=== PATIENT | female | born 1950 | race Caucasian/White ===

== ENCOUNTER 2016-10-03 18:55 | Emergency (ER) | payer MEDICARE, BC ==
[2016-10-03 19:07] VITALS: BP 165/83
[2016-10-03] MEDS ORDERED: Lidocaine/Epineph/Tetraca SOL* (LET solution) 4 ML BTL TOPICAL ONE (19:17)
--- NOTE | 2016-10-03 19:23 | UC ---
Head Injury HPI - HPI Summary HPI Summary: Slipped and fell back and hit her head--no loc laceration to back of scalp - History Of Current Complaint Chief Complaint: UCLaceration Stated Complaint: LACERATION BACK OF HEAD Time Seen by Provider: 10/03/16 19:10 Hx Obtained From: Patient ?: No Mechanism Of Injury: slipped and fell Onset/Duration: Sudden Onset, Still Present Severity Currently: Mild Severity Initially: Mild Pain Intensity: 4 Aggravating Factor(s): Nothing Alleviating Factor(s): Nothing Associated Signs And Symptoms: Positive: Negative - Allergies/Home Medications Allergies/Adverse Reactions: Allergies Allergy/AdvReac Type Severity Reaction Status Date / Time Bee Venom Allergy Swelling Verified 10/03/16 19:07 Home Medications: Home Medications Bp Med Unknown 1 tab PO DAILY 10/03/16 [History Confirmed 10/03/16] PMH/Surg Hx/FS Hx/Imm Hx Previously Healthy: No Cardiovascular History Of: Reports: Hypertension - Surgical History Surgical History: Yes Surgery Procedure, Year, and Place: c section - Family History Known Family History: Positive: None Family History: no reported cardio vascular issues in family lineage - Social History Occupation: Retired Lives: With Family Alcohol Use: Daily Alcohol Amount: wine daily Substance Use Type: None Smoking Status (MU): Never Smoked Tobacco - Immunization History Hx Tetanus, Diphtheria Vaccination: Yes - less than 2 years ago Vaccination Up to Date: Yes Review of Systems Constitutional: Negative Skin: Other - 2 inch laceration to back of head Eyes: Negative ENT: Negative Respiratory: Negative Cardiovascular: Negative Gastrointestinal: Negative Genitourinary: Negative Motor: Negative Neurovascular: Negative Musculoskeletal: Negative Neurological: Negative Psychological: Negative All Other Systems Reviewed And Are Negative: Yes Physical Exam Triage Information Reviewed: Yes Appearance: Well-Appearing, No Pain Distress, Well-Nourished Vital Signs: Initial Vital Signs Temp 97.5 F 10/03/16 19:03 Pulse 77 10/03/16 19:03 Resp 16 10/03/16 19:03 BP 165/83 10/03/16 19:03 Pulse Ox 97 10/03/16 19:03 Vital Signs Reviewed: Yes Eye Exam: Normal Eyes: Positive: Conjunctiva Clear, Other: - perrla, eomi, fundascopic exam wnl ENT Exam: Normal ENT: Positive: Normal ENT inspection, Hearing grossly normal. Negative: Nasal congestion, Nasal drainage, Trismus, Muffled/hoarse voice Dental Exam: Normal Neck exam: Normal Neck: Positive: Supple, Nontender, No Lymphadenopathy Respiratory Exam: Normal Respiratory: Positive: Chest non-tender, No respiratory distress, No accessory muscle use Cardiovascular Exam: Normal Cardiovascular: Positive: RRR, Pulses Normal, Brisk Capillary Refill Musculoskeletal Exam: Normal Musculoskeletal: Positive: Strength Intact, ROM Intact, No Edema Neurological Exam: Normal Neurological: Positive: Alert, Muscle Tone Normal Psychological Exam: Normal Psychological: Positive: Normal Response To Family Skin Exam: Other Skin: Positive: Other - 2 inch laceration to back of head Procedures - Laceration/Wound Repair 1 Location: head Description: Linear Length, Depth and Shape: linear 2 inches long, 2 mm wide Betadine Prep?: Yes Irrigated w/ Saline (ccs): 250 Laceration/Wound Explored: clean, no foreign body removed Closure: Kranthi #__ Layer Closure?: No Sterile Dressing Applied?: Yes Diagnostics - Radiology No standard instances Xray Interpretation: No Acute Changes Radiology Interpretation Completed By: Radiologist Re-Evaluation - Re-Evaluation First Eval Change: Improved - tolerated staple placement well--wound well approximated no bleeding Head Injury Course/Dx - Course Course Of Treatment: staple care, head injury precaution, hypertension education and DASH Diet plan follow with pcp in 10 days - Differential Dx/Diagnosis Differential Diagnosis/HQI/PQRI: Contusion, Laceration Provider Diagnoses: loaceration to scalp, head injury, hypertension with dx on treatment Discharge - Discharge Plan Condition: Stable Disposition: HOME Patient Education Materials: Head Injury (ED), DASH Eating Plan (ED), Hypertension (ED), Staple Care (ED) Referrals: Non Staff,Doctor [Primary Care Provider] - Additional Instructions: Follow with your primary care doctor in [place] , in 10 days for any problems and for staple removal
--- NOTE | 2016-10-03 19:54 | RAD ---
INDICATION: Head injury, laceration. COMPARISON: There are no prior studies available for comparison. TECHNIQUE: Contiguous axial sections of the brain were obtained from the skull base to the vertex without contrast. FINDINGS: The ventricles, cisterns and sulci are within normal limits. No significant focal abnormality or mass effect is seen. There is no evidence for hemorrhage. There is focal soft tissue swelling and air in the scalp adjacent to the posterior right parietal bone and consistent with the patient's history of a laceration injury. No fracture is seen. There is a small effusion in the inferior portion of the left mastoid air cells. The visualized portion of the paranasal sinuses appear clear. IMPRESSION: NO EVIDENCE FOR ACUTE INTRACRANIAL ABNORMALITY.
== END 2016-10-03 20:22 | disposition home or self-care (01) ==
LOC: UCCORT 18:55
DX: S01.01XA Laceration without foreign body of scalp, initial encounter (principal); S09.90XA Unspecified injury of head, initial encounter; W01.0XXA Fall on same level from slipping, tripping and stumbling without subsequent striking against object, initial encounter; Y93.9 Activity, unspecified; Y92.9 Unspecified place or not applicable; I10 Essential (primary) hypertension; Z91.030 Bee allergy status
CPT/HCPCS: 12002; 70450; 99202; G0463